=== PATIENT | female | born 1960 | race Two or more races ===

== ENCOUNTER 2024-02-28 08:48 | Inpatient (IN) | payer OTHER ==
[~2024-02-28] VITALS: Ht 152.4 cm; Wt 90.7 kg
[2024-02-28] MEDS ORDERED: LOSARTAN POTASS50 MG PO (09:03)
[2024-02-28] MEDS ORDERED: BARIUM SULFATE 450 ML ORAL.SUSP PO ONE (09:21)
[2024-02-28 09:59] LABS: HEMATOCRIT 39.2 % (36.0-45.00); HEMOGLOBIN 13.5 g/dL (12.0-15.00); MEAN CELL VOLUME 95.4 fL (80.00-100.00); MEAN CORPUSCULAR HEMOGLOBIN 32.7 pg (27.00-32.0); MEAN CORPUSCULAR HGB CONC 34.3 g/dl (32.0-36.0); PLATELET COUNT 280 K/uL (150-450); RED BLOOD COUNT 4.11 M/uL (4.00-6.00); RED CELL DISTRIBUTION WIDTH 14.4 % (11.5-14.5)
[2024-02-28 10:09] LABS: PH,URINE 5.5 (5.0-8.0); URINE APPEARANCE Turbid; URINE BILIRRUBIN Negative (NEGATIVE); URINE BLOOD Small; URINE COLOR Dark Yellow; URINE GLUCOSE Negative (NEGATIVE); URINE LEUKOCYTE Moderate; URINE NITRATE Negative; URINE PROTEIN 30 (NEGATIVE)
[2024-02-28 10:10] LABS: URINE RBC 29.4 uL (0.0-20.8); URINE WBC 323.1 uL (0.0-23.2)
[2024-02-28 10:20] LABS: URINE BACTERIA > 9821.5 uL (0.0-1933); URINE EPITHELIAL CELLS > 201.7 uL (0.0-38.8)
[2024-02-28 10:22] LABS: URINE CRYSTALS MODERATE /HPF
[2024-02-28 11:36] LABS: CALCIUM 9.1 mg/dL (8.5-10.1); CREATININE SERUM 0.84 mg/dL (0.55-1.02); GFR 68.26; POTASSIUM 4.28 mEq/L (3.5-5.1)
[2024-02-28] MEDS ORDERED: PIPERACILLIN/TAZOBACTAM SODIUM 3.375 GM VIAL IV ONE ×2 (15:12→15:15)
[2024-02-28] MEDS ORDERED: DEXTROSE 5 % AND 0.9 % NACL 1,000 ML IV SCH (18:00)
[2024-02-28] MEDS ORDERED: hydrALAZINE HCL 20 MG VIAL IV PRN (18:15)
[2024-02-28] MEDS ORDERED: ACETAMINOPHEN 500 MG GEL..CAP PO PRN (18:15)
[2024-02-28] MEDS ORDERED: MEPERIDINE HCL/PF 25 MG/ML VIAL IM PRN (18:15)
[2024-02-28] MEDS ORDERED: ONDANSETRON HCL 4 MG in 0.9 % SODIUM CHLORIDE 50 ML IV PRN (18:15)
[2024-02-28] MEDS ORDERED: FAMOTIDINE/PF 20 MG in 0.9 % SODIUM CHLORIDE 8 ML IV PUSH SCH (21:00)
[2024-02-28] MEDS ORDERED: TEMAZEPAM 15 MG CAPSULE PO STA (22:03)
[2024-02-29] MEDS ORDERED: PIPERACILLIN/TAZOBACTAM SODIUM 3.375 GM in 0.9 % SODIUM CHLORIDE 100 ML IV SCH
[2024-02-29 08:01] LABS: HEMATOCRIT 36.5 % (36.0-45.00); HEMOGLOBIN 12.7 g/dL (12.0-15.00); MEAN CELL VOLUME 94.9 fL (80.00-100.00); MEAN CORPUSCULAR HGB CONC 34.8 g/dl (32.0-36.0); PLATELET COUNT 267 K/uL (150-450); RED BLOOD COUNT 3.84 M/uL (4.00-6.00); RED CELL DISTRIBUTION WIDTH 14.1 % (11.5-14.5)
[2024-02-29 08:31] LABS: BILIRUBIN TOTAL 0.6 mg/dL (0.3-1.2); BILIRUBIN,CONJUGATED 0.16 mg/dL (0.0-0.2); BILIRUBIN,UNCONJUGATED 0.44 mg/dL (0.0-0.6); CALCIUM 8.2 mg/dL (8.5-10.1); CHOL HDL RATIO 3.4 (0-5.0); CREATININE SERUM 0.92 mg/dL (0.55-1.02); GFR 61.46; GLOBULINA 3.4 G/DL (2.4-3.5); POTASSIUM 4.05 mEq/L (3.5-5.1); TOTAL PROTEIN 6.4 gm/dL (6.4-8.2)
[2024-02-29 08:48] LABS: INR 1.08; PARTIAL THROMBOPLASTIN TIME 36.7 SECONDS (22.0-34.0); PROTHROMBIN TIME 11.3 SECONDS (9.0-11.5)
[2024-02-29 08:55] LABS: C-REACTIVE PROTEIN 10.4 MG/DL (0.00-0.29)
[2024-02-29 09:16] LABS: URINE APPEARANCE Clear; URINE BILIRRUBIN Negative (NEGATIVE); URINE BLOOD Negative; URINE COLOR Yellow; URINE GLUCOSE Negative (NEGATIVE); URINE LEUKOCYTE Negative; URINE NITRATE Negative; URINE PROTEIN Negative (NEGATIVE); URINE UROBILINOGEN 0.2 E.U./dl
[2024-02-29 09:17] LABS: ERYTHROCYTE SEDIMENTATION RATE 66 mm/hr
[2024-02-29 09:22] LABS: URINE EPITHELIAL CELLS 4.9 uL (0.0-38.8); URINE WBC 12.2 uL (0.0-23.2)
[2024-02-29 09:34] LABS: URINE RBC 1.9 uL (0.0-20.8)
[2024-02-29] MEDS ORDERED: FAMOTIDINE/PF 20 MG/2 ML VIAL ONE (16:07)
[2024-02-29] MEDS ORDERED: SUCRALFATE 1 G TABLET PO SCH (17:00)
[2024-02-29] MEDS ORDERED: SIMETHICONE 125 MG CAPSULE PO SCH (17:00)
[2024-02-29] MEDS ORDERED: TEMAZEPAM 15 MG CAPSULE PO SCH (21:00)
[2024-03-01] MEDS ORDERED: FAMOTIDINE/PF 20 MG/2 ML VIAL ONE (08:29)
[2024-03-01] MEDS ORDERED: KETOROLAC TROMETHAMINE 30 MG VIAL IV PRN (14:00)
[2024-03-02] MEDS ORDERED: FAMOTIDINE/PF 20 MG/2 ML VIAL ONE ×2 (08:48→19:46)
[2024-03-02] MEDS ORDERED: ENOXAPARIN SODIUM 40 MG/0.4 ML SYRINGE SUBCUTANEO SCH (09:00)
[2024-03-02 12:18] LABS: ABG PH 7.455 (7.35-7.45); ABG PO2 57.9 mmHg (80-100); ABG pCO2 31.3 mmHg (35-45); BASE EXCESS -1.4 mmol/l; SaO2 91.1 %
[2024-03-02 12:19] LABS: BICARBONATE 21.5 mmol/l (23-25); Tco2 22.4 mmol/l; allen test SATISFACTORY; o2 21 %; puncture site RADIAL RIGHT
[2024-03-03] MEDS ORDERED: FAMOTIDINE/PF 20 MG/2 ML VIAL ONE (08:03)
[2024-03-04] MEDS ORDERED: SODIUM CL 0.9% 100 ML IV.SOLN IV ONE (05:54)
[2024-03-04] MEDS ORDERED: FAMOTIDINE/PF 20 MG/2 ML VIAL ONE ×2 (08:42→20:56)
[2024-03-04 09:10] LABS: HEMATOCRIT 36.3 % (36.0-45.00); HEMOGLOBIN 12.4 g/dL (12.0-15.00); MEAN CORPUSCULAR HEMOGLOBIN 31.7 pg (27.00-32.0); MEAN CORPUSCULAR HGB CONC 34.1 g/dl (32.0-36.0); PLATELET COUNT 334 K/uL (150-450); RED BLOOD COUNT 3.91 M/uL (4.00-6.00); RED CELL DISTRIBUTION WIDTH 14.4 % (11.5-14.5)
[2024-03-04 09:45] LABS: CREATININE SERUM 0.83 mg/dL (0.55-1.02); GFR 69.21; POTASSIUM 3.3 mEq/L (3.5-5.1)
[2024-03-04] MEDS ORDERED: METOCLOPRAMIDE HCL 5 MG/ML VIAL IV SCH (21:12)
[2024-03-05] MEDS ORDERED: ONDANSETRON HCL 2 MG/ML VIAL IV SCH (09:00)
[2024-03-05] MEDS ORDERED: DIATRIZOATE MEGLUMINE, SODIUM 30 ML BOTTLE PO NR (09:00)
[2024-03-05 09:11] LABS: HEMATOCRIT 35.4 % (36.0-45.00); HEMOGLOBIN 11.8 g/dL (12.0-15.00); MEAN CELL VOLUME 95.6 fL (80.00-100.00); MEAN CORPUSCULAR HGB CONC 33.4 g/dl (32.0-36.0); PLATELET COUNT 328 K/uL (150-450)
[2024-03-06 11:30] LABS: ABG PH 7.478 (7.35-7.45); ABG pCO2 30.2 mmHg (35-45); BASE EXCESS -0.5 mmol/l; BICARBONATE 21.9 mmol/l (23-25); SaO2 93.4 %; Tco2 22.8 mmol/l; o2 21 %; puncture site BRADIAL LEFT
[2024-03-06 16:34] LABS: ALBUMIN 2.4 gm/dL (3.4-5.0); BILIRUBIN TOTAL 0.4 mg/dL (0.3-1.2); CALCIUM 8.1 mg/dL (8.5-10.1); CREATININE SERUM 0.78 mg/dL (0.55-1.02); GFR 74.35; GLOBULINA 3.5 G/DL (2.4-3.5); TOTAL PROTEIN 5.9 gm/dL (6.4-8.2)
[2024-03-06 17:33] LABS: POTASSIUM 2.99 mEq/L (3.5-5.1)
[2024-03-06] MEDS ORDERED: MAGNESIUM SULFATE IN WATER 50 ML IV NR (19:15)
[2024-03-07] MEDS ORDERED: POTASSIUM CHLORIDE IN WATER 40 MEQ/100 ML PIGGYBAG IV SCH
[2024-03-07 17:01] LABS: CREATININE SERUM 0.73 mg/dL (0.55-1.02); GFR 80.26
[2024-03-07 18:22] LABS: POTASSIUM 2.86 mEq/L (3.5-5.1)
[2024-03-07] MEDS ORDERED: TEMAZEPAM 15 MG CAPSULE PO SCH (22:30)
[2024-03-08] MEDS ORDERED: POTASSIUM CHLORIDE IN WATER 100 ML IV NR (11:49)
[2024-03-08] MEDS ORDERED: MAGNESIUM SULFATE IN WATER 50 ML IV NR (11:50)
[2024-03-08] MEDS ORDERED: POTASSIUM CHLORIDE 10 MEQ CAPSULE PO SCH (13:00)
[2024-03-08] MEDS ORDERED: LACTOBACILLUS ACIDOPHILUS 1 CAP CAP PO SCH (13:21)
[2024-03-09 06:33] LABS: HEMATOCRIT 30.2 % (36.0-45.00); HEMOGLOBIN 10.4 g/dL (12.0-15.00); MEAN CELL VOLUME 93.3 fL (80.00-100.00); MEAN CORPUSCULAR HGB CONC 34.3 g/dl (32.0-36.0); PLATELET COUNT 393 K/uL (150-450); RED BLOOD COUNT 3.24 M/uL (4.00-6.00); RED CELL DISTRIBUTION WIDTH 14.4 % (11.5-14.5)
[2024-03-09 06:59] LABS: ANION GAP 8 (10.0-20.0); CALCIUM 7.5 mg/dL (8.5-10.1); CARBON DIOXIDE 29 mEq/L (21-32); CHLORIDE 112 mmol/L (98-107); CREATININE SERUM 0.72 mg/dL (0.55-1.02); GFR 81.55; GLUCOSE FASTING 97 mg/dL (65-100); POTASSIUM 3.74 mEq/L (3.5-5.1); SODIUM 145 mmol/L (136-145)
[2024-03-09 07:00] LABS: BLOOD UREA NITROGEN < 1 mg/dL (7-18); BUN CREA RATIO 1 (7.0-25.0); OSMOLALITY SERUM 284 MOSM/KG (275-295)
== END 2024-03-09 10:53 | disposition home or self-care (01) | DRG 398 ==
LOC: ER 08:50 → MEDJ 18:28
PROVIDERS: Emergency Medicine; General Practice; Internal Medicine; Surgery; ADMIT Internal Medicine; ATTEND Internal Medicine
PROC: BW21YZZ Computerized Tomography (CT Scan) of Abdomen and Pelvis using Other Contrast (ICD-10-PCS; 2024-02-28)
PROC: 0DTJ4ZZ Resection of Appendix, Percutaneous Endoscopic Approach (ICD-10-PCS; principal; 2024-02-29 10:00)
PROC: BW24YZZ Computerized Tomography (CT Scan) of Chest and Abdomen using Other Contrast (ICD-10-PCS; 2024-03-03)
PROC: B54DZZZ Ultrasonography of Bilateral Lower Extremity Veins (ICD-10-PCS; 2024-03-04)
PROC: BW21YZZ Computerized Tomography (CT Scan) of Abdomen and Pelvis using Other Contrast (ICD-10-PCS; 2024-03-05)
DX: K35.80 Unspecified acute appendicitis (principal); I82.409 Acute embolism and thrombosis of unspecified deep veins of unspecified lower extremity; N39.0 Urinary tract infection, site not specified; D72.829 Elevated white blood cell count, unspecified; K35.31 Acute appendicitis with localized peritonitis and gangrene, without perforation